=== PATIENT | female | born 1960 | race Caucasian/White ===

== ENCOUNTER 2016-06-10 11:11 | Emergency (ER) | payer BC ==
[~2016-06-10] VITALS: Ht 165.1 cm; Wt 60.5 kg
[2016-06-10 11:16] VITALS: BP 160/99; PULSE 98; RESP 16; TEMP 98.5; O2SAT 99
[2016-06-10] MEDS ORDERED: ADVA250A INH (11:25)
--- NOTE | 2016-06-10 11:44 | PD ---
HPI Chief Complaint: Laceration/Skin Injury Time Seen by Provider: 11:39 Travel History International Travel<30 days: No Contact w/Intl Traveler<30days: No Traveled to known affect area: No History of Present Illness HPI Patient is a 55-year-old female presenting with left forearm laceration. Pressure 1 hour prior to arrival she dropped a glass which broke on the ground. When she attempted to pick it up she bumped into the glass. It has been bleeding but stops with pressure. She applied superglue which did not help. He denies any loss of range of motion, weakness or paresthesia. She denies foreign body sensation. She denies history of diabetes, immunocompromise states , vascular disease. Last tetanus vaccine 3 years prior. [facility] Past Medical History Asthma: Yes Past Surgical History Other Surgery: Yes (R ARM) Social History Alcohol Use: Yes Tobacco Use: No Substance Use: No Allergies-Medications (Allergen,Severity, Reaction): Coded Allergies: No Known Allergies (Unverified , 06/10/16) Reported Meds & Prescriptions Reported Meds & Active Scripts Active Reported Advair Diskus Inh (Fluticasone-Salmeterol Inh) 250-50 Mcg/Blist Aer 1 Puff INH BID Rinse mouth after use. Review of Systems Cardiovascular: No: Edema, Claudication Musculoskeletal: No: Limited ROM, Weakness Skin: Positive Other (see the history of present illness) Neurologic: No: Weakness, Focal Abnormalities, Paresthesia, Sensory Disturbance Physical Exam Narrative GENERAL: Well-developed and well-nourished adult female in no acute distress. SKIN: Warm and dry. Good turgor without tenting. HEAD: Normocephalic and atraumatic. CARDIOVASCULAR: Regular rate and rhythm without murmurs, rubs, clicks or gallops. Radial pulses 2+ bilaterally. Capillary refill less than 2 seconds distal tip of all fingers of left hand. RESPIRATORY: Clear to auscultation bilaterally with symmetrical rise and fall, no distress or use of accessory muscles. MUSCULOSKELETAL: Proximal lateral left forearm has a 2.5 cm linear laceration, mild seepage without pulsatile bleeding. No palpable or visible foreign bodies however there is some super glue around the edges and in the wound margins. No edema. The pain with palpation of the left elbow, forearm, wrist and hand. Patient has full range of motion in the left elbow, wrist and fingers. Patient freely moving all four extremities spontaneously. Extremities without clubbing, cyanosis, or edema. No obvious deformities. NEUROLOGIC: CN II-XII grossly intact. Awake and alert. Strength 5/5 bilateral elbow flexion, elbow extension, wrist flexion, wrist extension. Sensation intact and strength 5/5 over radial, median, and ulnar nerve distributions bilaterally.sensation intact distal tip of all fingers of left hand. Normal speech. PSYCHIATRIC: Appropriate mood and affect; insight and judgment normal. Data Data Last Documented VS Vital Signs Date Time Temp Pulse Resp B/P Pulse Ox O2 Delivery O2 Flow Rate FiO2 06/10/16 11:16 98.5 98 16 160/99 99 Orders Lidocai-Epi 1%-1:100,000 Inj (Xylocaine- (06/10/16 11:45) Forearm (2vws) (06/10/16 11:38) MDM Medical Decision Making Medical Screen Exam Complete: Yes Emergency Medical Condition: Yes Interpretation(s) Last 24 hours Impressions Radius/Ulna X-Ray 06/10/16 1138 Signed Impressions: Service Date/Time: Friday, June 10, 2016 11:44 - CONCLUSION: Soft tissue laceration and foreign bodies. Meng Snowden MD Differential Diagnosis Laceration versus wound foreign body versus contaminated wound versus tendon injury versus neurovascular injury Narrative Course Patient is a 55-year-old female presenting with what appears to be superficial left forearm laceration. She has no orthopedic or neurovascular complaint and has normal range of motion and is neurovascularly intact. There is no evidence of glass in the wound however this is somewhat limited as the patient put Super Glue the wound in an attempt to close it. Tetanus vaccine was given 3 years prior. X-ray shows laceration with 2 foreign bodies. During the laceration repair is able to remove both whole which match the size and shape seen on imaging. As such no need for re-x-ray. Laceration repaired per attached procedure narrative. She given Augmentin for prophylaxis and recommended follow -up with PCP on Sunday.See discharge paperwork for further instructions. The plan was discussed with the patient who acknowledged their understanding and agreement. Reinforced the follow-up with primary care is critically important. Patient instructed on emergent conditions that should prompt return to ED. Procedures Procedure Narrative LACERATION LOCATION: Left proximal forearm LENGTH: 2.5 cm SHAPE: Linear NUMBER OF STITCHES/YEN: One horizontal mattress, 6 simple interrupted REPAIR: The area of the laceration was prepped with Betadine and sterilely draped. The laceration was infiltrated with 5 cc of percent lidocaine with epi. The wound was copiously irrigated and explored.the edge of the 2 pieces of glass visible on x-ray visible proximally to the wound. I was able to grasp them with forceps and removed whole. There was a small amount of dried superglue at the periphery of the wound which was also debrided and removed. No evidence of tendon injury or neurovascular injury. The wound was closed using 4-0 Prolene. This was a single layer repair. A sterile dressing was applied. The patient was advised to keep the dressing clean and dry. Patient tolerated the procedure well. Diagnosis Primary Impression: Laceration of left forearm Qualified Code: S51.812A - Laceration of left forearm, initial encounter Additional Impression: Foreign body (FB) in soft tissue Patient Instructions: General Instructions, Laceration (ED) Additional Instructions: Take medications as prescribed Keep bandage on for 24 hours then change daily When changing bandage wash area with soap and water Avoid swimming or submerging wound in any water(bath, heath, pool, ocean, etc) Take Tylenol or ibuprofen for pain Follow-up with PCP in 2-3 days, recommend suture removal in 10-14 days Return to the ED for any acute worsening of symptoms including swelling, warmth , spreading redness, pustular drainage, fever, weakness or numbness Med/Other Pt SpecificInfo: Prescription(s) given Scripts Amoxicillin-Clavulanate (Augmentin)875-125 mg Rni147 Mg PO BID #14 TAB not for use in CrCl <30 ml/min. Prov:Efren Francisco MD 06/10/16 Disposition: 01 DISCHARGE HOME Condition: Stable Mati Padilla III Jun 10, 2016 11:44
[2016-06-10] MEDS ORDERED: LIDOCAINE 1%/EPINEPHrine 1:100,000 SOLN 20 ML VIAL INFIL ONE (11:45)
--- NOTE | 2016-06-10 12:01 | RADHPO ---
EXAM DATE/TIME: 06/10/2016 11:44 [facility] COMPARISON: No previous studies available for comparison. INDICATIONS : Left proximal forearm laceration post fall on broken glass. MEDICAL HISTORY : Left wrist fracture. SURGICAL HISTORY : None. ENCOUNTER: Initial ACUITY: 1 day PAIN SCORE: 3/10 LOCATION: Left proximal forearm. FINDINGS: Two view examination of the left forearm demonstrates no evidence of fracture or dislocation. Bony m ineralization is normal. Soft tissue laceration and foreign bodies. CONCLUSION: Soft tissue laceration and foreign bodies. Meng Snowden MD on June 10, 2016 at 11:59 Board Certified Radiologist. This report was verified electronically.
[2016-06-10] MEDS ORDERED: AUGM875T PO (12:51)
== END 2016-06-10 13:05 | disposition home or self-care (01) ==
LOC: PHEFT 11:11
DX: S51.822A Laceration with foreign body of left forearm, initial encounter (principal); Z87.09 Personal history of other diseases of the respiratory system; W25.XXXA Contact with sharp glass, initial encounter; W45.8XXA Other foreign body or object entering through skin, initial encounter
CPT/HCPCS: 12001; 73090